=== PATIENT | male | born 1960 | race American Indian/Alaskan Native ===

== ENCOUNTER 2024-10-28 04:34 | Emergency (ER) | payer OTHER ==
[~2024-10-28] VITALS: Ht 182.9 cm; Wt 104.3 kg
[~2024-10-28 04:34] MED LIST: ASPI325 PO; BENTYL10 MG PO; CRUTCH4 USE; HYDACE5 PO; IBUP800 PO; NITR.4SL SL; NITR.6SL SL; Nitrostat0.4 MG SL; Norco 10-325 T1 EACH PO; PENVK500 PO; PROM25 PO; Toprol Xl50 MG PO; Zofran Odt8 MG SL
[2024-10-28 04:54] VITALS: BP 184/112
== END 2024-10-28 05:00 | disposition left against medical advice (07) ==
LOC: ER 04:34
DX: Z53.21 Procedure and treatment not carried out due to patient leaving prior to being seen by health care provider (principal)
CPT/HCPCS: 93005; 93010